=== PATIENT | male | born 1950 | race Caucasian/White ===

== ENCOUNTER → 2016-10-03 | Outpatient (CLI) | payer OTHER ==
--- NOTE | 2016-10-03 13:59 | US ---
Complete Abdominal Ultrasound History: 66-year-old with hepatosplenomegaly, cirrhosis. Comparison: Abdominal ultrasound March 17, 2016. Findings: The liver has slightly coarsened diffusely increased echotexture, with a nodular contour, w ith the right lobe of the liver measuring 17.3 cm (previously 19.1 cm). No focal hepatic mass is visi ble. There is no intrahepatic biliary dilatation. The common bile duct measures 4 mm and is normal. M inimal sludge is present in an otherwise normal gallbladder. The spleen is mildly enlarged, measuring 12.9 x 5.7 x 14.7 cm. There is borderline cortical thinning bilaterally. Hypoechoic structures in th e right renal pelvis could be related to parapelvic cysts or mild hydronephrosis. The right kidney me asures 12.0 cm and the left kidney measures 13.7 cm. The visible aorta is normal caliber with partial obscuration of the aorta by overlying bowel gas. The visible portions of the pancreas are normal wit h partial obscuration of the pancreatic head and tail by overlying bowel gas. The visible portions of the IVC are normal. Impression: 1. Nodular heterogeneous liver suggesting cirrhosis with no focal hepatic masses. 2. Slight improvement in splenomegaly. 3. Gallbladder sludge without evidence cholecystitis. 4. Parapelvic cysts versus less likely mild hydronephrosis in the right kidney, similar to the compar yanely.
== END ==
LOC: FIMAGING 10:39
PROVIDERS: ATTEND Internal Medicine
DX: K74.69 Other cirrhosis of liver (principal)

== ENCOUNTER → 2017-04-25 | Outpatient (CLI) | payer OTHER | LOC: FIMAGING 12:14 | PROVIDERS: ATTEND Internal Medicine | DX: K74.69 Other cirrhosis of liver (principal) ==

== ENCOUNTER → 2017-09-24 | Outpatient (CLI) | payer OTHER ==
[~2017-09-24] MED LIST: IOPAMIDOL (ISOVUE-300) 100 ML BTL ONE
== END ==
LOC: FIMAGING 13:52
PROVIDERS: ATTEND Internal Medicine
DX: K74.69 Other cirrhosis of liver (principal); I25.10 Atherosclerotic heart disease of native coronary artery without angina pectoris
CPT/HCPCS: 74160; Q9967